=== PATIENT | female | born 1990 | race Caucasian/White ===

== ENCOUNTER 2016-11-06 01:01 | Inpatient (IN) | payer BC, OTHER ==
[2016-11-06] MEDS ORDERED: Lidocaine 1% MPF* 2 ML VIAL ONE (10:44)
[2016-11-06] MEDS ORDERED: Oxytocin in LR* 20 UNITS/1,000 ML BAG IVPB ONE (10:44)
[2016-11-06] MEDS ORDERED: Oxytocin in LR* 20 UNITS/1,000 ML BAG IVPB SCH (11:00)
[2016-11-06 11:21] LABS: Hematocrit 41 % (35-47); Hemoglobin 13.8 g/dl (12.0-16.0); Mean Corpuscular HGB Conc 33 g/dl (31-36); Mean Corpuscular Hemoglobin 32 pg (27-31); Mean Corpuscular Volume 96 fL (80-97); Mean Platelet Volume 10 um3 (7.4-10.4); Red Blood Count 4.28 10^6/ul (4.0-5.4); Red Cell Distribution Width 14 % (10.5-15); White Blood Count 12.6 10^3/ul (3.5-10.8)
[2016-11-06] MEDS ORDERED: OBEPIDURAL* 250 ML ONE (14:37)
[2016-11-06] MEDS ORDERED: Famotidine TAB* 20 MG PO PRN (17:42)
[2016-11-06] MEDS ORDERED: Sodium Citrate/Citric Acid* 15 ML UDC PO PRN (17:42)
[2016-11-06] MEDS ORDERED: Phenylephrine IV* 40 MCG/ML 10 ML SYRINGE IV PUSH PRN ×2 (17:42)
[2016-11-06] MEDS ORDERED: EPHEDrine (Pressors)* 50 MG/ML VIAL IV PUSH PRN ×2 (17:42)
[2016-11-06] MEDS ORDERED: OBEPIDURAL* 250 ML EPIDURAL SCH (18:00)
[2016-11-07] MEDS ORDERED: Glucose ORAL NICU* 30 ML TUBE BUCCAL PRN (00:53)
[2016-11-07] MEDS ORDERED: Phytonadione INJ* 1 MG/0.5 ML ML IM ONE (00:53)
[2016-11-07] MEDS ORDERED: Erythromycin OPTH OINT* APPLIC OINT BOTH EYES ONE (00:53)
[2016-11-07] MEDS ORDERED: Hepatitis B Vac PF(ENGERIX-B)* 10 MCG/0.5 ML ML IM ONE (00:53)
[2016-11-07] MEDS ORDERED: Witch Hazel PAD* JAR TOPICAL PRN (00:55)
[2016-11-07] MEDS ORDERED: oxyCODONE/Acetamin 5/325 MG* TAB PO PRN (00:55)
[2016-11-07] MEDS ORDERED: Dibucaine 1% 28.35 GM TUBE PR PRN (00:55)
[2016-11-07] MEDS ORDERED: Acetaminophen TAB* 325 MG PO PRN (00:55)
[2016-11-07] MEDS ORDERED: Oxytocin in LR* 20 UNITS/1,000 ML BAG IVPB SCH (01:00)
[2016-11-07] MEDS: Ibuprofen TAB* 600 MG PO PRN ×3 (03:01→19:31)
[2016-11-07] MEDS ORDERED: Misoprostol TAB* 200 MCG PR ONE (05:00)
[2016-11-07] MEDS ORDERED: Misoprostol TAB* 200 MCG ONE (05:04)
[2016-11-07 08:55] LABS: Hematocrit 31 % (35-47); Hemoglobin 10.4 g/dl (12.0-16.0); Mean Corpuscular HGB Conc 34 g/dl (31-36); Mean Corpuscular Hemoglobin 32 pg (27-31); Mean Corpuscular Volume 96 fL (80-97); Mean Platelet Volume 10 um3 (7.4-10.4); Red Blood Count 3.22 10^6/ul (4.0-5.4); Red Cell Distribution Width 14 % (10.5-15); White Blood Count 18.4 10^3/ul (3.5-10.8)
[2016-11-07] MEDS: Docusate CAP* 100 MG PO SCH ×3 (09:45→19:31)
[2016-11-07] MEDS ORDERED: fentaNYL* 50 MCG/ML 2 ML VIAL (100 MCG VIAL) ONE (10:22)
[2016-11-07] MEDS ORDERED: fentaNYL* 50 MCG/ML 2 ML VIAL (100 MCG VIAL) IV SLOW PU ONE (10:22)
[2016-11-07] MEDS ORDERED: Methylergonovine INJ* 0.2 MG/ML 1ML AMP ONE (10:38)
[2016-11-07] MEDS ORDERED: Methylergonovine INJ* 0.2 MG/ML 1ML AMP IM ONE (10:53)
[2016-11-07] MEDS ORDERED: Methylergonovine TAB* 0.2 MG PO SCH (17:00)
[2016-11-07] MEDS: Methylergonovine TAB* 0.2 MG PO SCH (22:53)
[2016-11-08] MEDS: Methylergonovine TAB* 0.2 MG PO SCH ×2 (04:53→11:00)
[2016-11-08] MEDS: Ibuprofen TAB* 600 MG PO PRN ×3 (04:54→19:26)
[2016-11-08 06:56] LABS: Hematocrit 29 % (35-47); Hemoglobin 9.9 g/dl (12.0-16.0); Mean Corpuscular HGB Conc 34 g/dl (31-36); Mean Corpuscular Hemoglobin 33 pg (27-31); Mean Corpuscular Volume 97 fL (80-97); Mean Platelet Volume 10 um3 (7.4-10.4); Red Blood Count 3.03 10^6/ul (4.0-5.4); Red Cell Distribution Width 14 % (10.5-15); White Blood Count 15.1 10^3/ul (3.5-10.8)
[2016-11-08] MEDS: Docusate CAP* 100 MG PO SCH ×3 (08:53→23:43)
[2016-11-08] MEDS: Ferrous Gluconate TAB* 324 MG TAB PO SCH ×2 (08:53→23:43)
[2016-11-08 19:29] VITALS: BP 116/73
[2016-11-09] MEDS: Ibuprofen TAB* 600 MG PO PRN ×2 (02:55→08:59)
--- NOTE | 2016-11-09 08:31 | PTEDU ---
Patient Name: CHARMAINE ARAGON CHARMAINE ARAGON selected video: Never Ever Shake a Baby to view on 11/09/2016 at 8:31:15 AM from [id number]
[2016-11-09] MEDS: Ferrous Gluconate TAB* 324 MG TAB PO SCH (08:59)
[2016-11-09] MEDS: Docusate CAP* 100 MG PO SCH (08:59)
== END 2016-11-09 12:45 | disposition home or self-care (01) | DRG 541 ==
LOC: MCHOBOUT 01:01 → MCHOB 02:06
PROVIDERS: ADMIT Midwife; ATTEND Midwife
PROC: 10E0XZZ Delivery of Products of Conception, External Approach (ICD-10-PCS; principal; 2016-11-06)
PROC: 4A1HXCZ Monitoring of Products of Conception, Cardiac Rate, External Approach (ICD-10-PCS; 2016-11-06)
PROC: 0KQM0ZZ Repair Perineum Muscle, Open Approach (ICD-10-PCS; 2016-11-06)
PROC: 0UQMXZZ Repair Vulva, External Approach (ICD-10-PCS; 2016-11-06)
PROC: 10D17ZZ Extraction of Products of Conception, Retained, Via Natural or Artificial Opening (ICD-10-PCS; 2016-11-07)
DX: O76 Abnormality in fetal heart rate and rhythm complicating labor and delivery (principal); O72.2 Delayed and secondary postpartum hemorrhage; Z37.0 Single live birth; O90.81 Anemia of the puerperium; O70.1 Second degree perineal laceration during delivery; Z3A.39 39 weeks gestation of pregnancy
CPT/HCPCS: 36415; 76815; 85025; 85027; 86850; 86900; 86901; A9270-GY; J2210; J3010

== ENCOUNTER 2019-07-28 18:38 | Inpatient (IN) | payer BC, OTHER ==
[2019-07-28] MEDS ORDERED: Lactated Ringers 1000 ML Bag* 1,000 ML IV ONE ×2 (20:59→21:32)
[2019-07-28] MEDS ORDERED: Buffered Lidocaine 1% SYRIN* 1 ML/SYRINGE INTRADERM ONE (20:59)
[2019-07-28] MEDS ORDERED: Lactated Ringers 1000 ML Bag* 1,000 ML IV SCH ×2 (21:00→22:00)
[2019-07-28 21:03] LABS: ABS Lymphocytes 2.2 10^3/ul (1.0-4.8); ABS Monocytes 0.8 10^3/ul (0-0.8); ABS Neutrophils 9.2 10^3/ul (1.5-7.7); Eosinophil % 0.2 %; Hematocrit 36 % (35-47); Hemoglobin 12.5 g/dL (12.0-16.0); Lymphocyte % 18.1 %; Mean Corpuscular HGB Conc 35 g/dL (31-36); Mean Corpuscular Hemoglobin 34 pg (27-31); Mean Corpuscular Volume 96 fL (80-97); Mean Platelet Volume 9.8 fL (7.4-10.4); Platelet Count 197 10^3/uL (150-450); Red Blood Count 3.72 10^6 /uL (3.70-4.87); Red Cell Distribution Width 13 % (10-15); White Blood Count 12.2 10^3/uL (3.5-10.8)
[2019-07-28] MEDS ORDERED: Bupivacaine 0.25% SDV PF* 10 ML VIAL INJ ONE (21:04)
[2019-07-28] MEDS ORDERED: OBEPIDURAL* 250 ML EPIDURAL ONE (21:05)
--- NOTE | 2019-07-28 21:07 | HP ---
General Information - Reason for Visit 28 yo with a 39 week in labor. - General Information Maternal Age: 28 Grav: 3 Para: 1 SAB: 1 IEA: 0 Estimated Due Date: 08/02/19 Determined By: Early Ultrasound Gestational Age in Weeks/Days: 39 2/7 Maternal Blood Type and Rh: O Positive - Results this Serology/RPR Result: Non-Reactive Rubella Result: Non-Immune HBsAg Result: Negative HIV Result: Negative GBS Culture Result: Negative Past Medical History Delivery History: See Records - Hx retained placenta, hemorrhage Pertinent Past Medical History: See Records Pertinent Past Surgical History: See Records Pertinent Family History: See Records - Antepartal Records Antepartal Records: Reviewed, Uncomplicated Review of Systems Constitutional: Uncomfortable CV Complaint: No Respiratory: Shortness of Breath: No Gastrointestinal: No Nausea/Vomiting, Normal Bowel Movement Genitourinary: No Dysuria, No Bleeding, No Leaking Fluid Musculoskeletal: No Complaint, Contractions - Q3-4 minutes apart Neurological: No Headache, No Visual Changes Movement: Normal Exam Allergies/Adverse Reactions: Allergies No Known Allergies Allergy (Verified 11/06/16 06:55) Temp 97.8 BP 107/65 P 83 RR 20 POx 100% RA - Measurements Height: 5 ft 6.75 in Weight: 177 lb Weight in lbs: 177.697970 Body Mass Index (BMI): 27.9 Pre- Weight: 150 lb Weight Gained This : 27 lbs and 0 ozs - Exam Breast: Breast Exam Deferred CVA: No CVA Tenderness Extremities: No Edema Heart: Normal Rhythm/Heart Sounds HEENT: No Significant Findings Lungs: Clear Bilaterally Rectal: Rectal Exam Deferred Reflexes: DTR 2+ Thyroid: No Thyromegaly - Abdominal Exam Abdomen Exam: Non-Tender, Fundal Height Consistent with Dates - Ultrasound/Biophysical Profile Biophysical Profile: Normal Reactive NST Targeted Exam Findings See L&D Outpatient Visit Provider Note for Findings: N/A Cervical Exam: 4cm Effacement: 60% Station: -1 Presenting Part: Vertex Membrane Status: Intact Bleeding/Discharge: Bloody Show EFM Findings - External Monitor Findings Baseline Heart Rate: 140 External Monitor Findings: Accelerations Present Contractions: Moderate, 45-90 Seconds Assessment/Plan - Assessment Term in labor. - Obstetrical Risk Factors Risk Factors Comment: History of retained placenta and secondary post hemorrhage - Plan Plan: IV Hydration, Admit - Anticipate Vaginal Delivery - Date/Time of Admission Date of Admission: 07/28/19 Time of Admission: 21:00
[2019-07-28] MEDS: Phenylephrine 40 MCG/ML SYRINGE IV PUSH PRN ×4 (21:31→22:11)
[2019-07-28] MEDS ORDERED: Famotidine TAB* 20 MG PO PRN (21:32)
[2019-07-28] MEDS ORDERED: EPHEDrine (Pressors)* 50 MG/ML VIAL IV PUSH PRN (21:32)
[2019-07-28] MEDS ORDERED: Sodium Citrate/Citric Acid* 15 ML UDC PO PRN (21:32)
[2019-07-28] MEDS ORDERED: OBEPIDURAL* 250 ML EPIDURAL SCH (22:00)
[2019-07-29] MEDS ORDERED: Oxytocin in LR* 20 UNITS/1,000 ML BAG IVPB ONE ×2 (01:03→01:56)
[2019-07-29] MEDS ORDERED: Witch Hazel PAD* JAR TOPICAL PRN (01:46)
[2019-07-29] MEDS ORDERED: Glycerin ADULT SUPP PR PRN (01:46)
[2019-07-29] MEDS ORDERED: Dibucaine 1% 28.35 GM TUBE PR PRN (01:46)
--- NOTE | 2019-07-29 01:46 | PROCNOTE ---
[facility] OB: Delivery Note - Delivery A Date of : 07/29/19 Time of : 01:15 Sex: Female Weight at : 7 lb 10 oz Score 1 Minute: 9 Score 5 Minutes: 9 Gestational Age in Weeks and Days at Delivery: 39 Weeks and 3 Days Delivery Method: Spontaneous Vaginal Labor: Spontaneous Did Patient attempt ?: N/A, No Previous Amniotic Fluid: Clear Estimated Blood Loss: 200 Anesthesia/Analgesia: CEI for Labor Delivered By: Bairon Romero - Nursery Level of Nursery: Regular/Bedside - Perineum Perineal Injury: Perineal Laceration, 2nd Degree Perineal Repair: By Delivering Practioner - Events Delivery Events of Note: Pitocin Only After Delivery
[2019-07-29] MEDS ORDERED: Lactated Ringers 1000 ML Bag* 1,000 ML IV SCH (02:00)
[2019-07-29] MEDS ORDERED: Oxytocin in LR* 20 UNITS/1,000 ML BAG IVPB SCH (02:00)
[2019-07-29] MEDS: Ibuprofen TAB* 600 MG PO PRN ×4 (02:22→19:49)
[2019-07-29] MEDS ORDERED: Ammonia Inhalant* 1 EA AMP ONE (03:19)
[2019-07-29 03:23] LABS: Urine Benzodiazepine Screen None Detected (None Detect); Urine Opiates Screen None Detected (None Detect)
[2019-07-29] MEDS ORDERED: Lidocaine 1% INJ* 10 MG/ML 30 ML SDV ONE (03:44)
[2019-07-29] MEDS: Docusate CAP* 100 MG PO SCH ×3 (08:07→19:49)
[2019-07-29] MEDS ORDERED: Simethicone TAB* 80 MG TAB.CHEW PO SCH (08:30)
[2019-07-29] MEDS: Acetaminophen TAB* 325 MG PO PRN ×2 (11:10→18:17)
[2019-07-29] MEDS ORDERED: Oseltamivir CAP* 75 MG CAP PO SCH (17:15)
[2019-07-30] MEDS: Acetaminophen TAB* 325 MG PO PRN (05:11)
[2019-07-30 06:18] LABS: ABS Eosinophils 0.1 10^3/ul (0-0.6); ABS Lymphocytes 2.6 10^3/ul (1.0-4.8); ABS Monocytes 0.6 10^3/ul (0-0.8); ABS Neutrophils 5.9 10^3/ul (1.5-7.7); Eosinophil % 1.5 %; Hematocrit 34 % (35-47); Hemoglobin 11.6 g/dL (12.0-16.0); Lymphocyte % 27.8 %; Mean Corpuscular HGB Conc 35 g/dL (31-36); Mean Corpuscular Hemoglobin 34 pg (27-31); Mean Corpuscular Volume 98 fL (80-97); Mean Platelet Volume 9.4 fL (7.4-10.4); Platelet Count 172 10^3/uL (150-450); Red Blood Count 3.43 10^6 /uL (3.70-4.87); Red Cell Distribution Width 13 % (10-15); White Blood Count 9.3 10^3/uL (3.5-10.8)
[2019-07-30 08:22] VITALS: BP 108/62
[2019-07-30] MEDS: Docusate CAP* 100 MG PO SCH (08:31)
[2019-07-30] MEDS: Ibuprofen TAB* 600 MG PO PRN (08:31)
[2019-07-30] MEDS ORDERED: Ferrous Gluconate TAB* 324 MG TAB PO SCH (09:00)
[2019-07-30] MEDS ORDERED: Measles, Mumps,Rubella VACC* 0.5 ML/VIAL SUBCUT ONE (09:41)
== END 2019-07-30 11:32 | disposition home or self-care (01) | DRG 560 ==
LOC: MCHOBOUT 18:38 → MCHOB 20:43
PROVIDERS: ADMIT Obstetrics & Gynecology; ATTEND Obstetrics & Gynecology
PROC: 10E0XZZ Delivery of Products of Conception, External Approach (ICD-10-PCS; principal; 2019-07-29)
PROC: 4A1HXCZ Monitoring of Products of Conception, Cardiac Rate, External Approach (ICD-10-PCS; 2019-07-29)
PROC: 0KQM0ZZ Repair Perineum Muscle, Open Approach (ICD-10-PCS; 2019-07-29)
DX: O70.1 Second degree perineal laceration during delivery (principal); Z37.0 Single live birth; Z3A.39 39 weeks gestation of pregnancy
CPT/HCPCS: 36415; 80307; 85025; 86850; 86900; 86901; 90707; A9270-GY; G0480; J3490